=== PATIENT | male | born 1945 | race Caucasian/White ===

== ENCOUNTER 2016-06-21 17:30 | Emergency (ER) | payer OTHER, MEDICARE ==
[~2016-06-21] VITALS: Ht 165.1 cm; Wt 52.5 kg
[~2016-06-21 17:30] MED LIST: ACYC400T PO; ARTHRITIS MEDICATION PO; ASPI-110 PO; BUDE.5I NEB; GABA300C5 PO; GUAI100S7 PO; IPRASOL INH; LEVA750T PO; LEVO100T5 PO; METO25TA3 PO; MIRTA15 PO; Muscle relaxer PO; NORC5TAB PO; PRED10 PO; SIMV10TA PO
[2016-06-21 17:50] VITALS: BP 137/85; PULSE 119; RESP 20; TEMP 98.7; O2SAT 97
[2016-06-21] MEDS ORDERED: CYCL1TAB29 PO (18:34)
[2016-06-21] MEDS ORDERED: MIRTA15 PO (18:34)
[2016-06-21] MEDS ORDERED: LORA1TAB12 PO (18:34)
[2016-06-21] MEDS ORDERED: HYDR-3516 PO (18:34)
[2016-06-21] MEDS ORDERED: MELO7.5T4 PO (18:34)
[2016-06-21] MEDS ORDERED: METO25TA3 PO (18:34)
[2016-06-21] MEDS ORDERED: PROC10TA PO (18:34)
[2016-06-21] MEDS ORDERED: IPRASOL INH (18:34)
[2016-06-21] MEDS ORDERED: LEVO25TA4 PO (18:34)
[2016-06-21] MEDS ORDERED: MUCI600T PO (18:47)
--- NOTE | 2016-06-21 18:59 | PD ---
HPI Chief Complaint: Respiratory Symptoms Time Seen by Provider: 18:45 Travel History International Travel<30 days: No Contact w/Intl Traveler<30days: No Traveled to known affect area: No History of Present Illness HPI 71-year-old male complains of shortness of breath coughing and wheezing. Patient states that the symptoms started Saturday night half ago and got worse today. Patient's son states the patient was with repeating worse, slurring speech an speaking gibberish for about 20 minutes this evening. Patient states that his O2 saturations was in the 70s when that happened. Patient denies history of COPD. 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 Patient has history of CAD status post angioplasty, GERD, dyslipidemia, PA, hypertension, thyroid nodule removal, Purclel's esophagus, spinal stenosis. EMS was called. Patient was given albuterol treatment 3 prior to arrival to ED. Patient states that he is feeling better now. Patient denies any fever chills. Patient also complaint headache for the past a day and a half however no headache now. Patient denies any visual change. Patient denies any focal weakness or numbness of extremity. PFSH Past Medical History Arthritis: Yes Autoimmune Disease: No Anxiety: No Depression: No Heart Rhythm Problems: No Cancer: Yes (LARYNX/THYROID, 1994) Cardiac Catheterization: Yes (x 2 (last 06/2011)) Cardiovascular Problems: Yes (htn on meds) High Cholesterol: Yes Chemotherapy: No Chest Pain: Yes (states it was more related to SOB/CHEST) Congestive Heart Failure: Yes (BNPelevated this admit and states he believs he had it in the past also) COPD: Yes Cerebrovascular Accident: No Coronary Artery Disease: Yes Diabetes: No Diminished Hearing: No Endocrine: No Gastrointestinal Disorders: Yes (BARRETTS SYNDROME) GERD: Yes Glaucoma: No Genitourinary: No Heparin Induced Thrombocytopen: No Hypertension: Yes Kidney Stones: No Musculoskeletal: Yes Neurologic: Yes (SPINAL STENOSIS) Psychiatric: No Reproductive: No Respiratory: Yes (trach stoma) Immunizations Current: Yes Myocardial Infarction: Yes (1994; 07/13/2011 (STEMI ALert)) Radiation Therapy: Yes (1994) Renal Failure: No Seizures: No Tetanus Vaccination: < 5 Years Influenza Vaccination: Yes PNEUMOCCOCAL Vaccine (Year): 3 Past Surgical History Abdominal Surgery: Yes (HERNIA SURGERY 1953) AICD: No Cardiac Surgery: Yes (ANGIOPLASTY 1994) Coronary Artery Bypass Graft: No Coronary Stent: Yes (ANGIOPLASTY 1994) Genitourinary Surgery: No Pacemaker: No Other Surgery: Yes (trach/stoma) Family History Family Myocardial Infarction: Yes Social History Alcohol Use: No Tobacco Use: No (quit 1988, smoked cigs) Substance Use: No Allergies-Medications (Allergen,Severity, Reaction): Coded Allergies: Sulfa (Verified Allergy, Severe, TOLD , 06/21/16) Reported Meds & Prescriptions Reported Meds & Active Scripts Active Pulmicort Respules (Budesonide) 0.5 Mg/2 Ml Neb 0.5 Mg NEB Q12HR NEB 30 Days Reported Mucinex ER 12 HR (Guaifenesin) Unknown Strength Manuela Unknown Dose PO BID Duoneb (Ipratropium-Albuterol Neb) 0.5-2.5 Mg/3 Ml Neb 1 Nebule INH Q4HR NEB PRN Levothyroxine (Levothyroxine Sodium) 25 Mcg Tab 25 Mcg PO DAILY Metoprolol Tartrate 25 Mg Tab 12.5 Mg PO BID Meloxicam 7.5 Mg Tab 7.5 Mg PO DAILY Prochlorperazine Maleate 10 Mg Tab 10 Mg PO Q8HR PRN Mirtazapine 15 Mg Tab 15 Mg PO HS Hydrocodone-Acetaminophen 5-325 mg Tab 1-2 Tab PO Q4H PRN Lorazepam 1 Mg Tab 0.5-1 Mg PO Q4HR PRN Flexeril (Cyclobenzaprine HCl) 10 Mg Tab 10 Mg PO HS Aspirin 81 (Aspirin) 81 Mg Tabdr 81 Mg PO DAILY Acyclovir 400 Mg Tab 400 Mg PO DAILY Gabapentin 300 Mg Cap 300 Mg PO BID Review of Systems General / Constitutional: No: Fever Eyes: No: Visual changes HENT: Positive: Headaches Cardiovascular: No: Chest Pain or Discomfort Respiratory: Positive: Cough, Shortness of Breath, Wheezing Gastrointestinal: No: Abdominal Pain Genitourinary: No: Dysuria Musculoskeletal: No: Pain Skin: No Rash Neurologic: No: Weakness Psychiatric: No: Depression Endocrine: No: Polydipsia Hematologic/Lymphatic: No: Easy Bruising Physical Exam Narrative GENERAL: Well-nourished, well-developed patient. SKIN: Warm and dry. HEAD: Normocephalic. EYES: No scleral icterus. No injection or drainage. Pupils 3 mm equal reactive. NECK: Supple, trachea midline. No JVD or lymphadenopathy. No meningismus CARDIOVASCULAR: Regular rate and rhythm without murmurs, gallops, or rubs. RESPIRATORY: Breath sounds equal bilaterally. No accessory muscle use. Mild expiratory wheezes bilaterally. Few rhonchi at the bases. GASTROINTESTINAL: Abdomen soft, non-tender, nondistended. MUSCULOSKELETAL: No cyanosis, or edema. BACK: Nontender without obvious deformity. No CVA tenderness. Neurologic exam normal. Data Data Last Documented VS Vital Signs Date Time Temp Pulse Resp B/P Pulse Ox O2 Delivery O2 Flow Rate FiO2 06/21/16 18:09 111 22 97 Trach Collar 8 06/21/16 17:50 98.7 137/85 MDM Medical Decision Making Medical Screen Exam Complete: Yes Emergency Medical Condition: Yes Differential Diagnosis Differential diagnosis including transient hypoxemia, acute exacerbation COPD, TIA, CVA, bronchitis, pneumonia, PE, pneumothorax. Narrative Course 71-year-old male with transient altered mental status, shortness of breath, wheezing and coughing with O2 saturation in the 70s. History of COPD. Patient was given albuterol treatment 3 by EMS. Keny Brannon MD Jun 21, 2016 18:59
[2016-06-21 19:14] LABS: BLOOD, URINE NEG (NEG); GLUCOSE,URINE NEG (NEG); KETONE, URINE NEG (NEG); NITRITE,URINE NEG (NEG)
[2016-06-21 19:22] LABS: METHOD OF COLLECTION CLEAN CATCH; URINE COLOR YELLOW (YELLW/STRAW); WBC, URINE 0-2 /hpf (0-5)
[2016-06-21 19:23] LABS: COMMENT (UR) CULT NOT INDICATED; CULTURE IF INDICATED CULT NOT INDICATED
--- NOTE | 2016-06-21 19:33 | RADHPO ---
EXAM DATE/TIME: 06/21/2016 19:06 [facility] COMPARISON: CHEST SINGLE AP, May 17, 2016, 4:29. INDICATIONS : Shortness of breath. MEDICAL HISTORY : Chronic obstructive pulmonary disease. Myocardial infarction. SURGICAL HISTORY : Coronary artery stent. ENCOUNTER: Initial ACUITY: 1 day PAIN SCORE: 0/10 LOCATION: Bilateral chest FINDINGS: Diffuse coarse interstitial thickening is present perisellar prior. No evidence of alveolar consolida tion or significant effusion. Cardiomediastinal contours are stable. CONCLUSION: Diffuse interstitial infiltrate. Bonilla Munoz MD on June 21, 2016 at 19:31 Board Certified Radiologist. This report was verified electronically.
[2016-06-21 19:44] LABS: AUTOMATED NEUTROPHIL # 13.8 TH/MM3 (1.8-7.7); BASOPHIL # 0.1 TH/MM3 (0-0.2); BASOPHIL % 0.4 % (0.0-2.0); EOSINOPHIL % 0.2 % (0.0-4.0); HEMATOCRIT 38.1 % (39.0-51.0); LYMPH % 8.6 % (9.0-44.0); LYMPHOCYTE # 1.4 TH/MM3 (1.0-4.8); MEAN CELL VOLUME 87.5 FL (80.0-100.0); MEAN CORPUSCULAR HEMOGLOBIN 29.6 PG (27.0-34.0); MEAN CORPUSCULAR HGB CONC 33.9 % (32.0-36.0); MONO % 3.7 % (0.0-8.0); NEUT % 87.1 % (16.0-70.0); PLATELET COUNT 216 TH/MM3 (150-450); RED BLOOD COUNT 4.36 MIL/MM3 (4.50-5.90); RED CELL DISTRIBUTION WIDTH 17.7 % (11.6-17.2); WHITE BLOOD COUNT 15.9 TH/MM3 (4.0-11.0)
[2016-06-21 19:48] LABS: HEMO FLAGS DIFF FINAL
[2016-06-21 19:52] LABS: CHLORIDE 98 MEQ/L (98-107); SODIUM (NA) 135 MEQ/L (136-145)
[2016-06-21 19:57] LABS: ANION GAP 10 MEQ/L (5-15); APTT (PATIENT) 28.7 SEC (24.3-30.1); BICARBONATE 26.9 MEQ/L (21.0-32.0); BLOOD UREA NITROGEN 20 MG/DL (7-18); INTERNATIONAL NORMALIZED RATIO 1.1 RATIO; PROTHROMBIN TIME - PATIENT 11.8 SEC (9.8-11.6)
[2016-06-21 20:00] LABS: ALT (GPT) 18 U/L (12-78); AST (GOT) 23 U/L (15-37); GLOMERULAR FILTRATION RATE 91 ML/MIN (>89)
[2016-06-21 20:01] LABS: TOTAL BILIRUBIN ADULT 0.5 MG/DL (0.2-1.0)
[2016-06-21 20:03] LABS: ALKALINE PHOSPHATASE 93 U/L (45-117)
[2016-06-21 20:04] LABS: CREATINE KINASE 61 U/L (39-308)
[2016-06-21] MEDS ORDERED: methylPREDNISolone SOD SUCC 125 MG/2 ML VIAL IVP ONE (20:45)
--- NOTE | 2016-06-21 20:56 | PD ---
Physical Exam Time Seen by Provider: 20:[address] Brannon with this patient with me to check the results of the laboratory/ imaging and likely admit. Data Data Last Documented VS Vital Signs Date Time Temp Pulse Resp B/P Pulse Ox O2 Delivery O2 Flow Rate FiO2 06/21/16 18:09 111 22 97 Trach Collar 8 06/21/16 17:50 98.7 137/85 Orders Electrocardiogram (06/21/16 18:51) Complete Blood Count With Diff (06/21/16 18:51) Comprehensive Metabolic Panel (06/21/16 18:51) Creatine Kinase (Cpk) (06/21/16 18:51) Troponin I (06/21/16 18:51) B-Type Natriuretic Peptide (06/21/16 18:51) Prothrombin Time / Inr (Pt) (06/21/16 18:51) Act Partial Throm Time (Ptt) (06/21/16 18:51) Blood Culture (06/21/16 18:51) Urinalysis - C+S If Indicated (06/21/16 18:51) Thyroid Stimulating Hormone (06/21/16 18:51) Chest, Single Ap (06/21/16 18:51) Ct Brain W/O Iv Contrast(Rout) (06/21/16 18:51) Iv Access Insert/Monitor (06/21/16 18:51) Ecg Monitoring (06/21/16 18:51) Oximetry (06/21/16 18:51) Methylprednisolone So Succ Inj (Solumedr (06/21/16 20:45) Labs Laboratory Tests Test 06/21/16 06/21/16 19:00 19:25 Urine Collection Type CLEAN CATCH Urine Color YELLOW Urine Turbidity CLEAR Urine pH 6.0 Urine Specific [place] 1.010 Urine Protein NEG mg/dL Urine Glucose (UA) NEG mg/dL Urine Ketones NEG mg/dL Urine Occult Blood NEG Urine Nitrite NEG Urine Bilirubin NEG Urine Leukocyte Esterase NEG Urine WBC 0-2 /hpf Microscopic Urinalysis Comment CULT NOT INDICATED Urine Collection Time 1900 White Blood Count 15.9 TH/MM3 Red Blood Count 4.36 MIL/MM3 Hemoglobin 12.9 GM/DL Hematocrit 38.1 % Mean Corpuscular Volume 87.5 FL Mean Corpuscular Hemoglobin 29.6 PG Mean Corpuscular Hemoglobin 33.9 % Concent Red Cell Distribution Width 17.7 % Platelet Count 216 TH/MM3 Mean Platelet Volume 7.9 FL Neutrophils (%) (Auto) 87.1 % Lymphocytes (%) (Auto) 8.6 % Monocytes (%) (Auto) 3.7 % Eosinophils (%) (Auto) 0.2 % Basophils (%) (Auto) 0.4 % Neutrophils # (Auto) 13.8 TH/MM3 Lymphocytes # (Auto) 1.4 TH/MM3 Monocytes # (Auto) 0.6 TH/MM3 Eosinophils # (Auto) 0.0 TH/MM3 Basophils # (Auto) 0.1 TH/MM3 CBC Comment DIFF FINAL Differential Comment Prothrombin Time 11.8 SEC Prothromb Time International 1.1 RATIO Ratio Activated Partial 28.7 SEC Thromboplast Time Sodium Level 135 MEQ/L Potassium Level 4.0 MEQ/L Chloride Level 98 MEQ/L Carbon Dioxide Level 26.9 MEQ/L Anion Gap 10 MEQ/L Blood Urea Nitrogen 20 MG/DL Creatinine 0.84 MG/DL Estimat Glomerular Filtration 91 ML/MIN Rate Random Glucose 133 MG/DL Calcium Level 8.6 MG/DL Total Bilirubin 0.5 MG/DL Aspartate Amino Transf 23 U/L (AST/SGOT) Alanine Aminotransferase 18 U/L (ALT/SGPT) Alkaline Phosphatase 93 U/L Total Creatine Kinase 61 U/L Troponin I 0.15 NG/ML B-Type Natriuretic Peptide 565 PG/ML Total Protein 7.5 GM/DL Albumin 3.6 GM/DL Thyroid Stimulating Hormone 2.930 uIU/ML [facility] Gen [facility] Medical Record Reviewed: Yes Supervised Visit with IRLANDA: Yes Interpretation(s) The chest x-ray shows diffuse interstitial infiltrate. EKG shows sinus tachycardia with a rate of 114, right bundle branch block and lateral ST-T wave changes. The complete metabolic profile shows a BUN of 20, GFR 133, sodium 135 but is otherwise unremarkable. The cardiac enzymes showed troponin I of 0.15. The TSH is normal. The white count is 15,900 with a hemoglobin of 13 and hematocrit of 38 but is otherwise unremarkable. The BNP is 565. The coagulation profile is normal except for a pro time of 11.8. Urinalysis is normal and deep. Differential Diagnosis COPD with acute exacerbation, acute coronary syndrome, congestive heart failure , electrolyte disorder, hypo-/hyperglycemia Narrative Course The patient is a hospice patient, I did not know that one Dr. Clovis transferred this patient to me. The patient does not want to be admitted. He states he has two nurses coming to visit him tomorrow and one of them is a hospice nurse. He is alert and oriented. A TIAs unlikely, this appears to be a hypoxic episode from the COPD. Plan: We will compile everything we did here in emergency department with respect to laboratory/imaging and handed to him to give to his hospice nurse/ physicians. The patient was told that he does have a slight elevation of the troponin I as well as an interstitial infiltrate on the chest x-ray. The chest x-ray has shown this interstitial infiltrate previously. He also has had in the past and elevated BNP of over 1700 last month. He likely does have some congestive heart failure. He states he is doing much better now with his breathing and wants to go home. Diagnosis Primary Impression: Chronic obstructive pulmonary disease Additional Impressions: Bilateral pulmonary infiltrates on chest x-ray Hospice care patient Dhruv Montes MD Jun 21, 2016 20:56
[2016-06-21 21:00] VITALS: BP 138/81; PULSE 110; RESP 20; O2SAT 97
--- NOTE | 2016-06-21 21:00 | RADHPO ---
EXAM DATE/TIME: 06/21/2016 20:06 [facility] COMPARISON: No previous studies available for comparison. INDICATIONS : Altered mental status. Shortness of breath. Slurred speech. RADIATION DOSE: 62.69 CTDIvol (mGy) MEDICAL HISTORY : Chronic obstructive pulmonary disease. Cardiovascular disease SURGICAL HISTORY : Coronary artery stent. ENCOUNTER: Initial ACUITY: 4 - 6 days PAIN SCALE: 3/10 LOCATION: cranial TECHNIQUE: Multiple contiguous axial images were obtained of the head. Using automated exposure control and adj ustment of the mA and/or kV according to patient size, radiation dose was kept as low as reasonably a chievable to obtain optimal diagnostic quality images. FINDINGS: There is a small remote lacunar infarct in the left globus pallidus. No evidence of intracranial mass or hemorrhage. There is nothing to suggest acute infarction. Extracranial structures are benign. CONCLUSION: No acute intracranial findings Bonilla Munoz MD on June 21, 2016 at 20:54 Board Certified Radiologist. This report was verified electronically.
[2016-06-21 21:01] VITALS: RESP 20; O2SAT 98
--- NOTE | 2016-06-22 16:31 | EKG ---
Date Performed: 06/21/2016 Time Performed: 19:18:50 PTAGE: 71 years EKG: Sinus tachycardia with sinus arrhythmia with PVC(s) Right bundle branch block Inferior infa rct - age undetermined Lateral ST-T changes may be due to myocardial ischemia Abnormal ECG PREVIOUS TRACING : 05/12/2016 15.07 Compared to prior tracing no significant change DOCTOR: Preet Johns Interpretating Date/Time 06/22/2016 16:29:14
== END 2016-06-21 21:33 | disposition home or self-care (01) ==
LOC: PHEFT 17:30
DX: J44.9 Chronic obstructive pulmonary disease, unspecified (principal); R91.8 Other nonspecific abnormal finding of lung field; R51 Headache; R00.0 Tachycardia, unspecified; R47.81 Slurred speech; R41.82 Altered mental status, unspecified; I45.10 Unspecified right bundle-branch block; R94.31 Abnormal electrocardiogram [ECG] [EKG]; I10 Essential (primary) hypertension; E78.00 Pure hypercholesterolemia, unspecified; I50.9 Heart failure, unspecified; I25.2 Old myocardial infarction
CPT/HCPCS: 70450; 71010; 80053; 81001; 82550; 83880; 84443; 84484; 85025; 85610; 85730; 87040; 93005; 96374; 99285; J2930